=== PATIENT | female | born 1955 | race Caucasian/White ===

== ENCOUNTER 2018-06-30 06:05 | Day surgery (SDC) | payer MEDICAID ==
[2018-06-26 15:06] LABS: BASOPHILS # (AUTO) 0.1 X10'3 (0-0.2); BASOPHILS % (AUTO) 2.1 % (0-1); EOSINOPHILS # (AUTO) 0.1 X10'3 (0-0.9); EOSINOPHILS % (AUTO) 1.3 % (0-6); LYMPHOCYTES # (AUTO) 1.9 X10'3 (1.1-4.8); LYMPHOCYTES % (AUTO) 27.3 % (21-51); MEAN CORPUSCULAR HEMOGLOBIN 32.4 PG (27.0-31.0); MEAN CORPUSCULAR HGB CONC 33.1 % (33.0-36.5); MEAN CORPUSCULAR VOLUME 98.2 FL (78-98); MEAN PLATELET VOLUME 7.8 FL (7.4-10.4); MONOCYTES # (AUTO) 0.9 X10'3 (0-0.9); MONOCYTES % (AUTO) 12.7 % (2-12); NEUTROPHILS # (AUTO) 3.9 X10'3 (1.8-7.7); NEUTROPHILS % (AUTO) 56.6 % (42-75); PRE OP HEMATOCRIT 39.7 % (35.0-45.0); PRE OP HEMOGLOBIN 13.1 g/dL (12.0-16.0); PRE OP PLATELET COUNT 382 X10'3 (140-440); RED BLOOD COUNT 4.05 X10'6 (4.20-5.60); RED CELL DISTRIBUTION WIDTH 19.2 % (11.5-14.5)
[2018-06-26 15:06] LABS: CLARITY,URINE CLEAR (Clear); COLOR,URINE YELLOW (Yellow); GLUCOSE, URINE NEGATIVE (Neg); KETONES,URINE NEGATIVE (Neg); LEUKOCYTE ESTERASE ,URINE NEGATIVE (Neg); NITRITES, URINE NEGATIVE (Neg); OCCULT BLOOD,URINE NEGATIVE (Neg); PROTEIN,URINE NEGATIVE (Neg); UROBILINOGEN,URINE 0.2 E.U/dL (0.2-1.0)
[2018-06-26 15:09] LABS: UA COLLECTION TYPE NON-SPECIFIED
[2018-06-26 15:17] LABS: ALBUMIN 3.3 G/DL (3.4-5.0); ALBUMIN/GLOBULIN RATIO 0.9 (1.1-1.5); ALKALINE PHOSPHATASE 95 IU/L (46-116); BLOOD UREA NITROGEN 10 MG/DL (7-18); BUN/CREATININE RATIO 14.3 (6.6-38.0); CHLORIDE 104 MMOL/L (99-107); PRE OP ALT 25 U/L (30-65); PRE OP ANION GAP 10 (8-16); PRE OP AST 20 U/L (10-37); PRE OP BILIRUB, TOTAL 0.4 MG/DL (0.0-1.0); PRE OP GLUCOSE 95 MG/DL (70-104); PRE OP SODIUM 140 MMOL/L (135-145); TOTAL CARBON DIOXIDE 25.8 MMOL/L (24-32); TOTAL PROTEIN 7.1 G/DL (6.4-8.2); eGFR 84 ML/MIN
[~2018-06-30] VITALS: Ht 165.1 cm; Wt 61.2 kg
[2018-06-30] VITALS (9 sets, daily range): BP systolic 130–143; BP diastolic 68–96
[~2018-06-30 06:05] MED LIST: NO HOME MEDS; cefazolin/dext.iso 2gm/100 ML IV ONE; famotidine 20mg tablet PO ONE; ringers solution, lacted 1,000 ML IV SCH
[2018-06-30] MEDS ORDERED: LIDOcaine 1% (10mg/ml) 2ml vial ONE (06:36)
[2018-06-30] MEDS ORDERED: BUPIVAcaine/PF 2.5mg/ml (0.25%) 10ml vial ONE (06:44)
[2018-06-30] MEDS ORDERED: sevoflurane 250ml liquid IH ONE (08:30)
[2018-06-30] MEDS ORDERED: propofol inj 20 ML IV ONE (08:36)
[2018-06-30] MEDS ORDERED: fentaNYL/PF 50MCG/1 ML 2ML syringe ONE (08:36)
[2018-06-30] MEDS ORDERED: midazolam 2 mg/2 ml injection ONE (08:36)
[2018-06-30] MEDS ORDERED: dexamethasone sod phosphate 4mg/ml inj. ONE (08:36)
[2018-06-30] MEDS ORDERED: ondansetron/PF 4mg/2ml inj ONE (08:36)
[2018-06-30] MEDS ORDERED: LIDOcaine 2% (20mg/ml) 5ml vial ONE (08:36)
[2018-06-30] MEDS ORDERED: ringers solution, lacted 1,000 ML IV SCH (09:03)
[2018-06-30] MEDS ORDERED: morphine 4 MG/ML inj SYRINge IV PRN ×2 (09:05)
[2018-06-30] MEDS ORDERED: labetalol 20mg/4ml (5mg/ml) syringe IV PRN (09:05)
[2018-06-30] MEDS ORDERED: fentaNYL/PF 50MCG/1 ML 2ML syringe IV PRN (09:05)
[2018-06-30] MEDS ORDERED: hydrALAZINE 20mg/ml inj. IV PRN (09:05)
[2018-06-30] MEDS ORDERED: ondansetron/PF 4mg/2ml inj IV PRN (09:05)
[2018-06-30] MEDS: fentaNYL/PF 50MCG/1 ML 2ML syringe IV PRN ×2 (10:09→10:17)
== END 2018-06-30 11:00 | disposition home or self-care (01) ==
LOC: PAS 06:05
PROVIDERS: ATTEND Surgery
DX: K64.3 Fourth degree hemorrhoids (principal); K64.4 Residual hemorrhoidal skin tags; L98.7 Excessive and redundant skin and subcutaneous tissue; R94.31 Abnormal electrocardiogram [ECG] [EKG]; Z72.89 Other problems related to lifestyle; Z91.048 Other nonmedicinal substance allergy status; Z79.891 Long term (current) use of opiate analgesic; Z98.890 Other specified postprocedural states
CPT/HCPCS: 36415; 45330; 46260; 80053; 81003; 85025; 93005; A6224; A6449; J0690; J1100; J2001; J2250; J2405; J2704; J3010; J3490; A7000; J7120

== ENCOUNTER 2018-10-09 08:10 | Inpatient (IN) | payer MEDICARE, MEDICAID ==
[2018-10-09] VITALS (17 sets, daily range): BP systolic 123–155; BP diastolic 68–94
[~2018-10-09] VITALS: Ht 165.1 cm; Wt 62.7 kg
[~2018-10-09 08:10] MED LIST changes: -cefazolin/dext.iso 2gm/100 ML IV ONE; -famotidine 20mg tablet PO ONE; -ringers solution, lacted 1,000 ML IV SCH
[2018-10-09 08:58] LABS: CLARITY,URINE CLEAR (Clear); COLOR,URINE YELLOW (Yellow); GLUCOSE, URINE NEGATIVE (Neg); KETONES,URINE 15 mg/dl (Neg); LEUKOCYTE ESTERASE ,URINE NEGATIVE (Neg); NITRITES, URINE NEGATIVE (Neg); OCCULT BLOOD,URINE NEGATIVE (Neg); PROTEIN,URINE NEGATIVE (Neg); UROBILINOGEN,URINE 0.2 E.U/dL (0.2-1.0)
[2018-10-09 08:59] LABS: URINE HCG NEGATIVE (NEG)
[2018-10-09 09:00] LABS: UA COLLECTION TYPE CLN CATCH MIDSTREAM
[2018-10-09 09:02] LABS: BASOPHILS # (AUTO) 0.1 X10'3 (0-0.2); BASOPHILS % (AUTO) 0.7 % (0-1); EOSINOPHILS # (AUTO) 0.1 X10'3 (0-0.9); EOSINOPHILS % (AUTO) 0.8 % (0-6); HEMOGLOBIN 13.8 g/dl (12.0-16.0); LYMPHOCYTES # (AUTO) 1.6 X10'3 (1.1-4.8); LYMPHOCYTES % (AUTO) 17.7 % (21-51); MEAN CORPUSCULAR HEMOGLOBIN 30.8 PG (27.0-31.0); MEAN CORPUSCULAR HGB CONC 33.6 g/dL (33.0-36.5); MEAN CORPUSCULAR VOLUME 91.7 FL (78-98); MEAN PLATELET VOLUME 7.4 FL (7.4-10.4); MONOCYTES % (AUTO) 10.8 % (2-12); NEUTROPHILS # (AUTO) 6.2 X10'3 (1.8-7.7); PLATELET COUNT 397 X10'3 (140-440); RED BLOOD COUNT 4.48 X10'6 (4.20-5.60); RED CELL DISTRIBUTION WIDTH 15.1 % (11.5-14.5); WHITE BLOOD COUNT 8.9 X10'3 (4.5-11.0)
[2018-10-09 09:09] LABS: ALANINE AMINOTRANSFERASE 18 U/L (12-78); ALBUMIN 3.3 G/DL (3.4-5.0); ALBUMIN/GLOBULIN RATIO 0.8 (1.1-1.5); ALKALINE PHOSPHATASE 122 IU/L (46-116); ANION GAP 12 (8-16); ASPARTATE AMINO TRANSFERASE 18 U/L (10-37); BILIRUBIN,TOTAL 0.9 MG/DL (0.1-1.0); BLOOD UREA NITROGEN 6 MG/DL (7-18); BUN/CREATININE RATIO 9.7 (6.6-38.0); CALCIUM 9.2 MG/DL (8.5-10.1); CHLORIDE 99 MMOL/L (99-107); CREATININE 0.62 MG/DL (0.40-0.90); GLUCOSE 119 MG/DL (70-104); LIPASE 380 U/L (73-393); POTASSIUM 3.1 MMOL/L (3.5-5.1); SODIUM 137 MMOL/L (135-145); TOTAL CARBON DIOXIDE 25.9 MMOL/L (24-32); TOTAL PROTEIN 7.3 G/DL (6.4-8.2); eGFR > 90 ML/MIN
[2018-10-09] MEDS ORDERED: normal saline 1000ML IV soln IVB ONE (09:25)
[2018-10-09] MEDS ORDERED: iohexol 300mg/ml 100ml inj. ONE (09:44)
[2018-10-09] MEDS ORDERED: ketorolac tromethamine 15mg/ml inj. IV ONE (10:40)
[2018-10-09] MEDS ORDERED: ondansetron/PF 4mg/2ml inj IV ONE (12:10)
[2018-10-09] MEDS ORDERED: morphine 4 MG/ML inj SYRINge IV PRN ×5 (12:10→15:10)
[2018-10-09] MEDS ORDERED: potassium Cl 20 mEq SR tablet PO PRN (12:35)
[2018-10-09] MEDS ORDERED: magnesium hydroxide 30ml (MOM) UD suspension PO PRN (12:35)
[2018-10-09] MEDS ORDERED: magnesium Cl slow-release 64mg tablet PO PRN (12:35)
[2018-10-09] MEDS ORDERED: mag hydrox/Alum hydrox/simeth 30ml oral suspension PO PRN (12:35)
[2018-10-09] MEDS ORDERED: potassium Cl 40MEQ/NS 500ml 500 ML IV PRN ×2 (12:35)
[2018-10-09] MEDS ORDERED: HYDROcodone/acetaminophen 5mg/325mg tablet PO PRN ×2 (12:35→16:30)
[2018-10-09] MEDS ORDERED: ondansetron/PF 4mg/2ml inj IV PRN ×2 (12:35→15:10)
[2018-10-09] MEDS ORDERED: acetaminophen 325mg tablet PO PRN ×2 (12:35)
[2018-10-09] MEDS ORDERED: magnesium 4gm in 100ml NS 100 ML IV PRN (12:35)
[2018-10-09] MEDS ORDERED: magnesium 2GM in 50ml NS 50 ML IV PRN (12:35)
[2018-10-09] MEDS: normal saline 1000ml 1,000 ML IV SCH ×2 (12:50→22:35)
[2018-10-09 13:05] LABS: AMYLASE 50 U/L (25-115)
[2018-10-09] MEDS ORDERED: LIDOcaine 1% 30ml preserv. free vial ONE (14:26)
[2018-10-09] MEDS ORDERED: BUPIVAcaine/PF 2.5mg/ml (0.25%) 10ml vial ONE (14:26)
--- NOTE | 2018-10-09 14:27 | NUR ---
Pt. admitted to floor from ER hold. A&) x4, pain level at 1.5 in abd. Vitals: 98.8, 97%SAO2 on RA, 142/79, 16 RR. Denies nausea. No skin issues. PMX hemorrhoid removal sx 3 months ago, and high blood pressure on arrival to ER, on 24 hour tele, monitor in place, 20 gauge in RAC with NS running @ 100ml/hr, pt. ambulates SBA, old R ankle fx, fractured around xmas, [facility] caring for fx, has boot at home, partner [place] will bring to hospital. Pt. NPO at the moment, wanting ice chips, potassium low at 3.1, potassium replacement ordered, sx scheduled for tonight. Taking Tordol for pain, very effective and pt. tolerates it well. Will cont. to monitor on my shift.
[2018-10-09] MEDS ORDERED: ringers solution, lacted 1,000 ML IV SCH (15:07)
[2018-10-09] MEDS ORDERED: proCHLORperazine 10 MG/2 ml inj IV PRN (15:10)
[2018-10-09] MEDS ORDERED: meperidine/PF 25mg/ml syringe IV PRN ×3 (15:10)
[2018-10-09] MEDS ORDERED: midazolam 2 mg/2 ml injection ONE (15:14)
[2018-10-09] MEDS ORDERED: fentaNYL/PF 50MCG/1 ML 2ML syringe ONE (15:14)
[2018-10-09] MEDS ORDERED: neostigmine methylsulfate 1 MG/ML 10ml vial ONE (15:15)
[2018-10-09] MEDS ORDERED: ondansetron/PF 4mg/2ml inj ONE (15:15)
[2018-10-09] MEDS ORDERED: sevoflurane 250ml liquid IH ONE (15:15)
[2018-10-09] MEDS ORDERED: dexamethasone sod phosphate 10mg/ml inj ONE (15:15)
[2018-10-09] MEDS ORDERED: LIDOcaine 1%/PF 5ML 10 MG/ML VIAL ONE (15:15)
[2018-10-09] MEDS ORDERED: glycopyrrolate 0.2mg/ml inj ONE (15:15)
[2018-10-09] MEDS ORDERED: propofol inj 20 ML IV ONE (15:15)
[2018-10-09] MEDS ORDERED: rocuronium 10mg/ml inj IV ONE (15:18)
[2018-10-09] MEDS ORDERED: ketorolac trometh. 30mg/ml inj. ONE (16:22)
--- NOTE | 2018-10-09 16:35 | NUR ---
Received from OR via BED, accompanied by Anesthesiologist DR CARDENAS-- and report given by Anesthesiolgist. PATIENT A&OX4, DENIES PAIN, V/S WNL, NEUROVASCULAR CHECKS INTACT, 20G PIV RUE, SCD ON, 3 BANDAIDS TO ABDOMEN CDI
--- NOTE | 2018-10-09 17:35 | NUR ---
PATIENT A&OX4, DENIES PAIN, V/S WNL, NEUROVASCULAR CHECKS INTACT, 20G PIV RUE, SCD ON, 3 BANDAIDS TO ABDOMEN CDI. PATIENT TAKEN TO WITH ALL BELONGINGS AND [facility] WHO HAS TAKEN OVER PATIENT CARE.
[2018-10-09] MEDS: piperacillin/tazo 3.375gm/50ml 50 ML IV SCH (18:03)
--- NOTE | 2018-10-09 18:37 | NUR ---
Patient in room [facility]. I have received report from DARWIN Rothman and had the opportunity to ask questions and assume patient care.
[2018-10-09] MEDS: potassium Cl 20 mEq SR tablet PO PRN (19:35)
[2018-10-09] MEDS ORDERED: temazepam 15mg capsule PO PRN (21:00)
[2018-10-09] MEDS: HYDROcodone/acetaminophen 10/325mg tab PO PRN (21:51)
[2018-10-10] VITALS: BP 124/73
[2018-10-10] MEDS: piperacillin/tazo 3.375gm/50ml 50 ML IV SCH ×2 (00:46→07:28)
[2018-10-10] MEDS: potassium Cl 20 mEq SR tablet PO PRN (00:50)
[2018-10-10] MEDS: HYDROcodone/acetaminophen 10/325mg tab PO PRN ×3 (03:25→13:58)
--- NOTE | 2018-10-10 06:33 | NUR ---
Problems reprioritized. Patient report given, questions answered & plan of care reviewed with DARWIN Michaels.
--- NOTE | 2018-10-10 06:35 | NUR ---
Patient in room [facility]. I have received report from DARWIN Khan and had the opportunity to ask questions and assume patient care. Patient resting comfortably at this time. Call light and items of frequent use in reach of patient.
[2018-10-10 07:08] LABS: ALANINE AMINOTRANSFERASE 21 U/L (12-78); ALBUMIN 2.3 G/DL (3.4-5.0); ALBUMIN/GLOBULIN RATIO 0.7 (1.1-1.5); ALKALINE PHOSPHATASE 88 IU/L (46-116); ANION GAP 9 (8-16); ASPARTATE AMINO TRANSFERASE 30 U/L (10-37); BILIRUBIN,TOTAL 0.8 MG/DL (0.1-1.0); BLOOD UREA NITROGEN 7 MG/DL (7-18); BUN/CREATININE RATIO 12.7 (6.6-38.0); CALCIUM 7.9 MG/DL (8.5-10.1); CHLORIDE 105 MMOL/L (99-107); CREATININE 0.55 MG/DL (0.40-0.90); GLUCOSE 124 MG/DL (70-104); MAGNESIUM 1.4 MG/DL (1.5-2.4); POTASSIUM 4.2 MMOL/L (3.5-5.1); SODIUM 138 MMOL/L (135-145); TOTAL CARBON DIOXIDE 24.1 MMOL/L (24-32); TOTAL PROTEIN 5.7 G/DL (6.4-8.2); eGFR > 90 ML/MIN
[2018-10-10 07:12] LABS: BASOPHILS % (AUTO) 0.2 % (0-1); EOSINOPHILS % (AUTO) 0 % (0-6); HEMATOCRIT 34.7 % (35.0-45.0); HEMOGLOBIN 11.7 g/dl (12.0-16.0); LYMPHOCYTES # (AUTO) 0.8 X10'3 (1.1-4.8); LYMPHOCYTES % (AUTO) 6.2 % (21-51); MEAN CORPUSCULAR HEMOGLOBIN 31.5 PG (27.0-31.0); MEAN CORPUSCULAR HGB CONC 33.7 g/dL (33.0-36.5); MEAN CORPUSCULAR VOLUME 93.4 FL (78-98); MONOCYTES # (AUTO) 1.2 X10'3 (0-0.9); MONOCYTES % (AUTO) 9.1 % (2-12); NEUTROPHILS % (AUTO) 84.5 % (42-75); PLATELET COUNT 333 X10'3 (140-440); RED BLOOD COUNT 3.72 X10'6 (4.20-5.60); RED CELL DISTRIBUTION WIDTH 15.5 % (11.5-14.5)
[2018-10-10] MEDS: normal saline 1000ml 1,000 ML IV SCH (07:38)
[2018-10-10 08:00] VITALS: BP 130/72
[2018-10-10] MEDS ORDERED: pantoprazole 40 MG vial IV SCH (08:00)
[2018-10-10] MEDS ORDERED: K and/or MAG REPLACEMENT MC SCH (08:00)
[2018-10-10] MEDS ORDERED: enoxaparin 40mg/0.4ml syringe SUBCUT SCH (08:00)
[2018-10-10 11:00] VITALS: BP 164/89
[2018-10-10] MEDS ORDERED: HYDR-4353 PO (15:38)
--- NOTE | 2018-10-10 16:21 | NUR ---
Patient discharged home via . Patient ambulated from unit with and x1 staff. Patient alert, oriented and in no apparent distress at this time. Patient took all belongings from room including discharge instructions. Patient and stated an understanding of discharge instructions. Both were given time for questions and answers. Patient was given prescription for [place] and a copy was place in the chart. PIV removed with cannula intact. Patient also given some bandaids to replace those placed over lapsites when they are soiled or wet.
[2018-10-10] MEDS ORDERED: lactobacillus rhamnosus 10,000 MMU CELLS/CAPSULE PO SCH (20:00)
[2018-10-14 17:34] LABS: OCCULT BLOOD STOOL NEGATIVE (Neg)
== END 2018-10-10 16:07 | disposition home or self-care (01) | DRG 418 ==
LOC: ER 08:10 → ED HOLD 12:35 → SUR 3N 13:50
PROVIDERS: ADMIT Internal Medicine; ATTEND Internal Medicine
PROC: 0FT44ZZ Resection of Gallbladder, Percutaneous Endoscopic Approach (ICD-10-PCS; principal; 2018-10-09 15:15)
DX: K80.00 Calculus of gallbladder with acute cholecystitis without obstruction (principal); K86.1 Other chronic pancreatitis; K82.1 Hydrops of gallbladder; F10.10 Alcohol abuse, uncomplicated; K59.09 Other constipation; E87.6 Hypokalemia; Y90.9 Presence of alcohol in blood, level not specified; F12.90 Cannabis use, unspecified, uncomplicated
CPT/HCPCS: 36415; 74177; 76700; 80053; 81003; 81025; 82150; 82272; 83690; 83735; 85025; 85610; 87070; 88304; 93005; 96361; 96374; 99285; A7000; C9113; G0378; J1100; J1650; J1885; J2001; J2250; J2405; J2543; J2704; J2710; J3010; J3490; J7030; J7120; Q9967

== ENCOUNTER 2019-01-25 09:26 | Day surgery (SDC) | payer MEDICARE, MEDICAID ==
[2019-01-21 15:45] LABS: PRE OP PROTIME 9.7 SECONDS (9.0-12.0)
[2019-01-21 15:52] LABS: ALBUMIN 3.3 G/DL (3.4-5.0); ALBUMIN/GLOBULIN RATIO 0.8 (1.1-1.5); ALKALINE PHOSPHATASE 100 IU/L (46-116); BLOOD UREA NITROGEN 10 MG/DL (7-18); BUN/CREATININE RATIO 16.4 (6.6-38.0); CHLORIDE 106 MMOL/L (99-107); CREATININE 0.61 MG/DL (0.40-0.90); PRE OP ALT 24 U/L (30-65); PRE OP ANION GAP 7 (8-16); PRE OP AST 16 U/L (10-37); PRE OP BILIRUB, TOTAL 0.2 MG/DL (0.0-1.0); PRE OP GLUCOSE 123 MG/DL (70-104); PRE OP POTASSIUM 3.7 MMOL/L (3.4-5.1); PRE OP SODIUM 139 MMOL/L (135-145); TOTAL CARBON DIOXIDE 26.2 MMOL/L (24-32); TOTAL PROTEIN 7.2 G/DL (6.4-8.2); eGFR > 90 ML/MIN
[2019-01-21 15:58] LABS: BASOPHILS # (AUTO) 0.1 X10'3 (0-0.2); BASOPHILS % (AUTO) 1.9 % (0-1); EOSINOPHILS # (AUTO) 0.1 X10'3 (0-0.9); EOSINOPHILS % (AUTO) 2.4 % (0-6); LYMPHOCYTES # (AUTO) 1.8 X10'3 (1.1-4.8); LYMPHOCYTES % (AUTO) 32.6 % (21-51); MEAN CORPUSCULAR HEMOGLOBIN 32.1 PG (27.0-31.0); MEAN CORPUSCULAR HGB CONC 34.2 g/dL (33.0-36.5); MEAN CORPUSCULAR VOLUME 93.9 FL (78-98); MEAN PLATELET VOLUME 7.6 FL (7.4-10.4); MONOCYTES # (AUTO) 0.5 X10'3 (0-0.9); MONOCYTES % (AUTO) 8.8 % (2-12); NEUTROPHILS % (AUTO) 54.3 % (42-75); PRE OP HEMOGLOBIN 13.3 g/dL (12.0-16.0); PRE OP PLATELET COUNT 449 X10'3 (140-440); RED BLOOD COUNT 4.16 X10'6 (4.20-5.60)
[2019-01-25] VITALS (23 sets, daily range): BP systolic 107–147; BP diastolic 59–84
[~2019-01-25] VITALS: Ht 162.6 cm; Wt 62.6 kg
[2019-01-25] MEDS: cefotetan inj 1 GM in normal saline 50ml IV soln 50 ML IV SCH ×2 (09:15→09:45)
[~2019-01-25 09:26] MED LIST changes: +famotidine 20mg tablet PO ONE
[2019-01-25] MEDS: ringers solution, lacted 1,000 ML IV SCH ×4 (10:03→17:21)
[2019-01-25] MEDS ORDERED: clindamycin phosphate 40gm vag cream ONE (11:13)
[2019-01-25] MEDS ORDERED: LIDOcaine 1% 30ml preserv. free vial ONE (11:14)
[2019-01-25] MEDS ORDERED: morphine 10mg/ml inj. ONE (11:14)
[2019-01-25] MEDS ORDERED: vasoPRESSIN 20 units/ml inj. ONE (11:14)
[2019-01-25] MEDS ORDERED: ceFAZolin 1000mg inj ONE (11:14)
[2019-01-25] MEDS ORDERED: BUPIVAcaine/PF 2.5 mg/ml (0.25%) 30ml vial ONE (11:14)
[2019-01-25] MEDS ORDERED: LIDOcaine 2% (20mg/ml) 5ml vial ONE (11:20)
[2019-01-25] MEDS ORDERED: rocuronium 10mg/ml inj IV ONE ×2 (11:20→13:00)
[2019-01-25] MEDS ORDERED: propofol inj 20 ML IV ONE (11:20)
[2019-01-25] MEDS ORDERED: fentaNYL/PF 50MCG/1 ML 2ML syringe ONE (11:21)
[2019-01-25] MEDS ORDERED: ringers solution, lacted 1,000 ML IV SCH ×2 (11:23→12:09)
[2019-01-25] MEDS ORDERED: morphine 4 MG/ML inj SYRINge IV PRN ×3 (11:25→12:10)
[2019-01-25] MEDS ORDERED: hydrALAZINE 20mg/ml inj. IV PRN ×2 (11:25→12:10)
[2019-01-25] MEDS ORDERED: ondansetron/PF 4mg/2ml inj IV PRN ×3 (11:25→14:05)
[2019-01-25] MEDS ORDERED: fentaNYL/PF 50MCG/1 ML 2ML syringe IV PRN ×4 (11:25→12:10)
[2019-01-25] MEDS ORDERED: labetalol 20mg/4ml (5mg/ml) syringe IV PRN ×2 (11:25→12:10)
[2019-01-25] MEDS ORDERED: sevoflurane 250ml liquid IH ONE (11:35)
[2019-01-25] MEDS ORDERED: glycopyrrolate 0.2mg/ml inj ONE (11:35)
[2019-01-25] MEDS ORDERED: dexamethasone sod phosphate 10mg/ml inj ONE (11:35)
[2019-01-25] MEDS ORDERED: fluoroscein sod 10% (100mg/ml) 5ml vial ONE (11:35)
[2019-01-25] MEDS ORDERED: neostigmine methylsulfate 1 MG/ML 10ml vial ONE (11:35)
[2019-01-25] MEDS ORDERED: labetalol 20mg/4ml (5mg/ml) syringe IV ONE (12:38)
[2019-01-25] MEDS ORDERED: ondansetron/PF 4mg/2ml inj ONE (12:40)
[2019-01-25] MEDS ORDERED: furosemide 40mg/4ml inj ONE (13:38)
[2019-01-25] MEDS ORDERED: naloxone 0.4 mg/ml inj IV PRN (14:05)
[2019-01-25] MEDS ORDERED: magnesium hydroxide 30ml (MOM) UD suspension PO PRN (14:05)
[2019-01-25] MEDS ORDERED: normal saline 500ml IV soln 500 ML IV PRN (14:05)
[2019-01-25] MEDS ORDERED: HYDROcodone/acetaminophen 5mg/325mg tablet PO PRN ×2 (14:05)
[2019-01-25] MEDS ORDERED: temazepam 15mg capsule PO PRN (14:05)
[2019-01-25] MEDS ORDERED: diphenhydrAMINE 50 mg/ml inj IV PRN (14:05)
[2019-01-25] MEDS ORDERED: CADD PCA waste documentation MC PRN (14:05)
--- NOTE | 2019-01-25 14:06 | NUR ---
Received from OR via BED, accompanied by Anesthesiologist DR MCCLELLAND and report given by Anesthesiologist. PT DROWSY, DENIES PAIN, ABDOMEN W/6 LAP SITES W/STERI-STRIPS AND BANDAIDS COVERING, CDI EXCEPT FOR LATERAL LEFT LOWER ABDOMEN LAP SITE W/SCANT AMT OF OOZING, PLACED 4X4 OVER TOP, WILL MONITOR, DIA CATHETER TO GRAVITY DRAINAGE W/BRIGHT YELLOW URINE IN DRAINAGE BAG. PT COMFORTABLE. Addendum: 01/25/19 at 1506 by Jesenia Major RN Amended: Links added.
[2019-01-25] MEDS ORDERED: CADD PCA waste documentation MC SCH (14:15)
--- NOTE | 2019-01-25 14:15 | NUR ---
Received report from DARWIN Ba. Patient to room [facility] [address], call light within reach. patient stating pain is "tolerable" and "really not bad at all". Will continue to monitor patient. Addendum: 01/25/19 at 1740 by Xenia Webb RN Patient arrived at 1615 not 1415
[2019-01-25] MEDS: morphine 4 MG/ML inj SYRINge IV PRN ×2 (15:00→15:10)
[2019-01-25] MEDS: HYDROmorphone/NS 1 mg/ml CADD 50 ML IV SCH ×6 (15:00→23:00)
[2019-01-25] MEDS: ketorolac tromethamine 15mg/ml inj. IV PRN (15:00)
[2019-01-25] MEDS ORDERED: HYDROmorphone/NS 1 mg/ml CADD 50 ML IV SCH (15:00)
--- NOTE | 2019-01-25 16:16 | NUR ---
Report called to receiving nurse. Transferred via BED, 1 BAG OF PERSONAL Belongings SENT W/PT TO ROOM 344A, RECEIVING RN AT BEDSIDE TO RECEIVE PT, BLL, CALL LIGHT GIVEN, SIDE RAILS UP X 2. Special Issues communicated to receiving nurse. YES. Addendum: 01/25/19 at 1625 by Jesenia Major RN Amended: Links added.
[2019-01-25] MEDS: simethicone 80mg chew tab PO SCH (17:21)
--- NOTE | 2019-01-25 18:10 | NUR ---
Patient in room [facility]. I have received report from Xenia GRANADOS and had the opportunity to ask questions and assume patient care.
--- NOTE | 2019-01-25 18:22 | NUR ---
Problems reprioritized. Patient report given, questions answered & plan of care reviewed with DARWIN Dhaliwal.
--- NOTE | 2019-01-25 20:00 | NUR ---
see post op documentation Addendum: 01/26/19 at 0100 by Isra Moreno RN Amended: Links added.
[2019-01-26] MEDS: ringers solution, lacted 1,000 ML IV SCH ×3 (00:40→01:15)
[2019-01-26] MEDS: HYDROmorphone/NS 1 mg/ml CADD 50 ML IV SCH ×5 (01:00→09:00)
--- NOTE | 2019-01-26 04:38 | NUR ---
Accidently backed my assessment to the 01/24/19 instead of the 01/25/19. Correct assessment date documented Addendum: 01/26/19 at 0440 by Isra Moreno RN Amended: Links added.
[2019-01-26 04:51] LABS: BASOPHILS % (AUTO) 0.4 % (0-1); EOSINOPHILS % (AUTO) 0 % (0-6); HEMATOCRIT 33.4 % (35.0-45.0); HEMOGLOBIN 11.5 g/dl (12.0-16.0); LYMPHOCYTES # (AUTO) 0.9 X10'3 (1.1-4.8); LYMPHOCYTES % (AUTO) 8.9 % (21-51); MEAN CORPUSCULAR HEMOGLOBIN 31.8 PG (27.0-31.0); MEAN CORPUSCULAR HGB CONC 34.2 g/dL (33.0-36.5); MEAN CORPUSCULAR VOLUME 92.9 FL (78-98); MEAN PLATELET VOLUME 7.9 FL (7.4-10.4); MONOCYTES # (AUTO) 0.6 X10'3 (0-0.9); MONOCYTES % (AUTO) 5.8 % (2-12); NEUTROPHILS # (AUTO) 8.6 X10'3 (1.8-7.7); NEUTROPHILS % (AUTO) 84.9 % (42-75); PLATELET COUNT 452 X10'3 (140-440); RED CELL DISTRIBUTION WIDTH 15.3 % (11.5-14.5); WHITE BLOOD COUNT 10.2 X10'3 (4.5-11.0)
--- NOTE | 2019-01-26 05:51 | NUR ---
patient vaginal packing removed, along with Laird catheter. Patient tolerated well.
--- NOTE | 2019-01-26 06:36 | NUR ---
Problems reprioritized. Patient report given, questions answered & plan of care reviewed with Xenia GRANADOS.
--- NOTE | 2019-01-26 06:51 | NUR ---
Patient in room [facility]. I have received report from DARWIN Dhaliwal and had the opportunity to ask questions and assume patient care.
[2019-01-26 07:00] VITALS: BP 115/63
[2019-01-26] MEDS: simethicone 80mg chew tab PO SCH ×2 (07:56→13:48)
[2019-01-26] MEDS: ketorolac tromethamine 15mg/ml inj. IV PRN (09:43)
[2019-01-26 11:00] VITALS: BP 118/68
--- NOTE | 2019-01-26 14:30 | NUR ---
Patient discharged home via and walked down from unit with x1 staff. Patient was alert, oriented and in no apparent distress at time of discharge. PIV was removed with cannula intact. New anderson catheter was placed due to too much residual urine in bladder. All belongings were taken with patient including discharge instructions. Patient was educated on anderson catheter care and how to prevent the introduction of infection. Patient also educated on how to switch between the night time bag and the leg bag. Patient stated an understanding of the discharge instructions and was able to teach back much of the teaching. Patient was given supplies in order to care for her anderson catheter.
== END 2019-01-26 14:52 | disposition home or self-care (01) ==
LOC: PAS 09:26 → SUR 3N 17:14 → PAS 01-26 14:52
PROVIDERS: ATTEND Specialist
DX: N81.4 Uterovaginal prolapse, unspecified (principal); N36.42 Intrinsic sphincter deficiency (ISD); N39.3 Stress incontinence (female) (male); Z90.49 Acquired absence of other specified parts of digestive tract; Z79.899 Other long term (current) drug therapy; Z98.890 Other specified postprocedural states
CPT/HCPCS: 36415; 57240; 57283; 57288; 58552; 80053; 82948; 85025; 85610; 85730; 86885; 86900; 86901; C1771; J0690; J1170; J1885; J1940; J2001; J2270; J2405; J2704; J3010; J3490; J7120; A4315; A4355; A6250; A7000; G0378; J1100; J2710; J7030; J7040